=== PATIENT | male | born 1940 | race Caucasian/White ===

== ENCOUNTER 2018-02-28 12:15 | Observation (INO) | payer OTHER, BC ==
[2018-02-28] MEDS ORDERED: ONDANSETRON HCL 40 MG/20 ML VIAL ONE (12:51)
[2018-02-28] MEDS ORDERED: MORPHINE 4 MG/ML SYR ONE (12:51)
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
[2018-02-28 13:16] LABS: Potassium 4.6 mEq/L (3.6-5.0)
[2018-02-28 13:17] LABS: Absolute Lymphocytes (CBC) 1.5 K/uL (0.7-4.9); Absolute Monocytes 0.9 K/uL (0.1-1.3); Absolute Neutrophil 11.7 K/uL (1.8-8.0); Basophils % 0.9 % (0-1.3); Eosinophils % 0.4 % (0-4.4); Hematocrit 48.3 % (39.6-49.0); Lymphocytes % 10.5 % (15.3-44.8); MCH 29.3 pg (27.0-35.0); MCV 88.3 fL (80-100); MPV 9.3 fL (7.6-11.3); Monocytes % 6.3 % (3.3-12.3); RBC Red Blood Cell Count 5.47 M/uL (4.33-5.43)
[2018-02-28 13:19] LABS: Albumin 4.8 g/dL (3.2-5.5); Bilirubin Total 1.4 mg/dL (0.3-1.2); Protein, Total 7.5 g/dL (6.0-8.3)
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
[2018-02-28] MEDS ORDERED: FENTANYL CITR 100 MCG/2 ML ONE (14:17)
[2018-02-28] MEDS ORDERED: PROPOFOL 0 MG/0 ML VIAL IV ONE (14:17)
[2018-02-28] MEDS ORDERED: PROPOFOL 200 MG/20 ML VIAL IV ONE (14:19)
[2018-02-28 14:41] LABS: Urine Blood 2+ (NEG); Urine Glucose NEGATIVE (NEG); Urine Protein 1+ (NEG); Urine Specific Gravity 1.015 (1.005-1.030)
[2018-02-28] MEDS ORDERED: NA CHLORIDE 0.9% 1,000 ML ONE ×2 (14:47→16:54)
[2018-02-28 14:57] LABS: Urine Bacteria <20 /HPF (NONE SEEN); Urine Culture Reflex Order NOT NEEDED
[2018-02-28] MEDS ORDERED: LIDOCAINE 1% W/EPI 1:100,000 MDV 50 ML VIAL ONE (15:00)
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
--- NOTE | 2018-02-28 15:09 | RAD REPORT ---
EXAM DESCRIPTION: RAD - Shoulder 1 View - 02/28/2018 3:00 pm CLINICAL HISTORY: Post reduction COMPARISON: None. FINDINGS: Internal rotation is noted of the humerus. A large Hill-Sachs defect is seen. There has be en reduction of the humeral head dislocation from the subcoracoid position, however mild subluxation is likely still present. A lateral projection could be obtained if further detailed assessment of the glenohumeral alignment is needed.
--- NOTE | 2018-02-28 15:11 | RAD REPORT ---
EXAM DESCRIPTION: RAD - Forearm Right - 02/28/2018 3:00 pm CLINICAL HISTORY: Trauma, pain COMPARISON: None. FINDINGS: Right forearm and right hand, multiple projections are submitted. Lucency at the base of the ulnar styloid is noted, compatible with fracture. Subtle lucency is seen i n the radial styloid as well which could represent a hairline fracture. No displacement is seen. The elbow appears intact.
--- NOTE | 2018-02-28 15:57 | RAD REPORT ---
EXAM DESCRIPTION: RAD - Shoulder 1 View - 02/28/2018 3:48 pm CLINICAL HISTORY: Postreduction right shoulder radiograph. COMPARISON: Earlier study same date. FINDINGS: Single scapular Y projection was submitted. The humeral head has been relocated with a con gruent glenohumeral relationship noted.
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
[2018-02-28] MEDS ORDERED: DIAZEPAM 10 MG/2 ML INJ SYRINGE ONE ×2 (17:55→19:06)
[2018-02-28] MEDS: NA CHLORIDE 0.9% 1,000 ML IV SCH ×2 (21:00→22:15)
[2018-02-28] MEDS: HYDROCODONE/APAP 5/325 MG TAB PO PRN (22:14)
[2018-02-28 23:26] LABS: Absolute Lymphocytes (CBC) 0.9 K/uL (0.7-4.9); Absolute Neutrophil 11.8 K/uL (1.8-8.0); Basophils % 0.3 % (0-1.3); Hematocrit 42.1 % (39.6-49.0); Lymphocytes % 6.4 % (15.3-44.8); MCH 29.5 pg (27.0-35.0); MCV 88.2 fL (80-100); MPV 8.6 fL (7.6-11.3); Monocytes % 7.3 % (3.3-12.3); RBC Red Blood Cell Count 4.77 M/uL (4.33-5.43)
[2018-03-01 00:19] LABS: Albumin 4.3 g/dL (3.2-5.5); Bilirubin Total 1.6 mg/dL (0.3-1.2); Magnesium 1.9 mg/dL (1.8-2.5); Phosphorus 2.4 mg/dL (2.5-4.3); Protein, Total 6.8 g/dL (6.0-8.3)
[2018-03-01 01:59] LABS: Blood Morphology Comment NOT SEEN (NOT SEEN); Platelet Estimate ADEQ
[2018-03-01] MEDS: HYDROCODONE/APAP 5/325 MG TAB PO PRN ×2 (03:20→09:25)
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
[2018-03-01] MEDS ORDERED: AMLODIPINE 10 MG TAB PO SCH (09:00)
[2018-03-01] MEDS ORDERED: PANTOPRAZOLE 40MG TABLET PO SCH (09:00)
[2018-03-01] MEDS ORDERED: ASPIRIN 81 MG CHEWABLE TABLET PO SCH (09:00)
[2018-03-01] MEDS ORDERED: METOPROLOL XL 25 MG TAB PO SCH (09:00)
[2018-03-01] MEDS: NA CHLORIDE 0.9% 1,000 ML IV SCH (09:20)
--- NOTE | 2018-03-01 11:20 | EKG ---
Test Date: 2018-02-28 Test Time: 16:56:40 [employer] Supervisor: AMPARO MEASUREMENT RESULTS: Intervals: Rate: 73 VT: 170 QRSD: 84 QT: 392 QTc: 431 [place]: P: 45 VT: 170 QRS: 3 T: 57 INTERPRETIVE STATEMENTS: Normal sinus rhythm Nonspecific T wave abnormality Abnormal ECG No previous ECG available for comparison Electronically Signed On 03-01-18 11:19:26 CDT by Abdias Newell
--- NOTE | 2018-03-02 09:11 | RAD REPORT ---
EXAM DESCRIPTION: RAD - Hand Right 3 View - 02/28/2018 3:00 pm CLINICAL HISTORY: Trauma, pain COMPARISON: None. FINDINGS: Right forearm and right hand, multiple projections are submitted. Lucency at the base of the ulnar styloid is noted, compatible with fracture. Subtle lucency is seen i n the radial styloid as well which could represent a hairline fracture. No displacement is seen. The elbow appears intact.
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
== END 2018-03-01 13:42 | disposition home or self-care (01) ==
LOC: ER 12:15 → ERHOLD 20:19 → 4TH 20:50
PROVIDERS: ADMIT Surgery; ATTEND Surgery
PROC: 0JQH0ZZ Repair Left Lower Arm Subcutaneous Tissue and Fascia, Open Approach (ICD-10-PCS; principal; 2018-02-28)
PROC: 0RSJXZZ Reposition Right Shoulder Joint, External Approach (ICD-10-PCS; 2018-02-28)
DX: R55 Syncope and collapse (principal); S42.102A Fracture of unspecified part of scapula, left shoulder, initial encounter for closed fracture; S42.101A Fracture of unspecified part of scapula, right shoulder, initial encounter for closed fracture; S52.611A Displaced fracture of right ulna styloid process, initial encounter for closed fracture; S51.812A Laceration without foreign body of left forearm, initial encounter; S43.014A Anterior dislocation of right humerus, initial encounter; S42.291A Other displaced fracture of upper end of right humerus, initial encounter for closed fracture; V91.83XA Other injury due to other accident to other powered watercraft, initial encounter; Y93.89 Activity, other specified; Y92.832 Beach as the place of occurrence of the external cause; I25.10 Atherosclerotic heart disease of native coronary artery without angina pectoris; I10 Essential (primary) hypertension; Z95.1 Presence of aortocoronary bypass graft; E11.9 Type 2 diabetes mellitus without complications; Z79.82 Long term (current) use of aspirin; E86.0 Dehydration; N28.9 Disorder of kidney and ureter, unspecified; R79.89 Other specified abnormal findings of blood chemistry
CPT/HCPCS: 12001; 23650; 36415; 70450; 71260; 72125; 73020 ×2; 73060 ×2; 73090 ×2; 73130; 74177; 80053 ×2; 80061; 82962 ×2; 83735; 84100; 84484; 85025 ×2; 86850; 86900; 86901; 93005; 94760; 96361; 96374; 96375; 97163; 99285; G0378 ×2; J2405; J3010; J3360 ×2; J7030 ×4; Q9967; 81003; 81015